=== PATIENT | male | born 1975 | race Hispanic/Latino ===

== ENCOUNTER 2024-06-16 22:23 | Emergency (ER) | payer SELFPAY ==
[2024-06-16] MEDS ORDERED: Ketorolac Tromethamine 30 MG (1 mL) VIAL ONE (23:35)
[2024-06-16] MEDS ORDERED: Acetaminophen 500 MG TAB ONE (23:36)
[2024-06-16] MEDS ORDERED: Methocarbamol 500 MG TAB ONE (23:36)
== END 2024-06-17 01:35 | disposition home or self-care (01) ==
LOC: CSHERS 22:23
DX: S39.012A Strain of muscle, fascia and tendon of lower back, initial encounter (principal); X50.0XXA Overexertion from strenuous movement or load, initial encounter
CPT/HCPCS: 72100; 93005; 96374; J1885